=== PATIENT | male | born 1980 | race Two or more races ===

== ENCOUNTER 2017-01-06 10:21 | Emergency (ER) | payer OTHER ==
--- NOTE | 2017-01-06 12:10 | RAD ---
Name: UTE BECERRIL Exam: Left foot Comparison: None Clinical history: Pain and swelling. Fall. Initial encounter. Findings: 3 views left foot are submitted. Bone density is normal. There is mild hallux valgus deformity. There is mild soft tissue swelling over the anterior aspect of the ankle. The remainder the bones soft tissues are unremarkable. Impression: 1. Mild soft tissue swelling 2. No acute bony abnormality
--- NOTE | 2017-01-06 12:12 | RAD ---
Name: UTE BECERRIL Exam: Left ankle Comparison: None Clinical history: Trauma. Left ankle pain. Initial encounter. Findings: 3 views of the left ankle are submitted. There is minimal spurring in the medial and lateral ankle joint. Ankle mortise is intact. Lateral and to a lesser degree anterior soft tissue swelling is present. There is no fracture, dislocation, periosteal reaction or foreign body. Impression: Soft tissue swelling lateral and anterior to the ankle. There is no acute bony normality.
== END 2017-01-06 12:31 | disposition home or self-care (01) ==
LOC: ED 10:21
DX: S93.402A Sprain of unspecified ligament of left ankle, initial encounter (principal); W10.9XXA Fall (on) (from) unspecified stairs and steps, initial encounter; Y92.89 Other specified places as the place of occurrence of the external cause; Y99.0 Civilian activity done for income or pay